=== PATIENT | female | born 1970 | race Caucasian/White ===

== ENCOUNTER → 2020-09-05 | Outpatient (CLI) | payer OTHER ==
[~2020-09-05] MED LIST: CLARITIN10 M3 PO; NORCO5 PO; PEPCID20 MG PO
== END | disposition home or self-care (01) ==
LOC: M.LAB 13:32
PROVIDERS: ATTEND Surgery
DX: Z01.812 Encounter for preprocedural laboratory examination (principal); Z20.822 Contact with and (suspected) exposure to COVID-19; R22.31 Localized swelling, mass and lump, right upper limb; R19.00 Intra-abdominal and pelvic swelling, mass and lump, unspecified site

== ENCOUNTER → 2020-09-06 | Day surgery (SDC) | payer OTHER ==
--- NOTE | ~2020-09-06 | OP ---
[facility] [address] [place] [address] OPERATIVE REPORT Name: NAVDEEP SUAREZ Room: [facility]#: [id number] Admission: 09/06/20 Attend Phys: Anam Tadeo Discharge: Date of : 68 Report #: [id number] THIS REPORT FOR: cc: FAM - No family physician/PCP FAM - No family physician/PCP Anam Tadeo MD ~ DATE OF SURGERY: 09/06/2020 PREOPERATIVE DIAGNOSES: 1. Right shoulder mass, benign, 2 cm. 2. Left abdominal mass, 10 cm. POSTOPERATIVE DIAGNOSES: 1. Right shoulder mass, benign, 2 cm. 2. Left abdominal mass, 10 cm. OPERATIONS: 1. Excision of benign right shoulder mass, 2 cm. 2. Excision of benign left abdominal mass, 10 cm. SURGEON: Anam Tadeo MD ANESTHESIA: General. ESTIMATED BLOOD LOSS: Minimal. SPECIMENS: 1. Right shoulder mass. 2. Left abdominal wall mass. DESCRIPTION OF PROCEDURE: After informed consent was obtained, the patient was brought to the operating room and placed supine. SCDs were placed and working, preoperative antibiotics were administered, general anesthesia was induced. The abdomen and right shoulder were prepped and draped in the usual sterile fashion. A 2 cm incision was made over the right shoulder mass. Cautery dissection was made down through the subcutaneous tissue. Mass was excised. Skin was reapproximated with 4-0 Monocryl in running subcuticular fashion. Attention was then directed to the left abdomen. A 10 cm incision was made. Cautery dissection was made down through the subcutaneous tissue. There was a lipoma. This was carefully dissected around with cautery. It was fully excised. The skin was then reapproximated with 3-0 Vicryl for the deep layer and 4-0 Monocryl in running subcuticular fashion for the skin. Incisions were dressed with Steri-Strips and sterile gauze. Sterile dressings were applied. COMPLICATIONS: [place] [address] OPERATIVE REPORT Name: NAVDEEP SUAREZ Room: [facility].#: [id number] Admission: 09/06/20 Attend Phys: Anam Tadeo Discharge: Date of : 68 Report #: [id number] DISPOSITION: The patient was taken to recovery in satisfactory condition. By: [id number] Tadeo MD /kaden
[2020-09-06 08:34] LABS: HEMOGLOBIN 14.3 gm/dL (12.0-15.0); MCHC 34.9 g/dL (28.0-37.0); MCV 91.8 fL (80.0-100.0); MPV 6.9 fl. (7.2-11.1); RBC 4.46 mil/uL (4.20-5.00); RDW-CV 13.8 % (10.5-14.5); WBC 9.2 thou/uL (4.0-11.0)
[2020-09-06 08:38] LABS: CALCIUM 8.9 mg/dL (8.5-10.1); CREATININE 0.7 mg/dL (0.6-1.3); POTASSIUM 3.8 mmol/L (3.5-5.1)
--- NOTE | 2020-09-06 15:17 | EKG ---
[place] [address] ELECTROCARDIOGRAM REPORT Name: DAREN SUAREZREYNOLD Patel Room: [facility]#: [id number] Admission: 09/06/20 Attend Phys: Anam Chung Discharge: Date of : 68 Date of Service: 09/06/20822 Report #: [id number] THIS REPORT FOR: //name// 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1970 Requested By: Anam Tadeo Order Number: [id number] Jacy MD: Nahun Ruth Measurements Intervals [place] Rate: 90 P: 46 MI: 172 QRS: -22 QRSD: 94 T: 40 QT: 356 QTc: 436 Interpretive Statements Sinus rhythm Borderline left axis deviation Low voltage, precordial leads Consider anterior infarct No previous ECG available for comparison Electronically Signed On 09-06-2020 15:17:14 CDT by Nahun Ruth [email or web address] <ELECTRONICALLY SIGNED> By: Nahun Ruth MD, [facility] 09/06/20 1517 0823 0823 Nahun Ruth MD, [facility] /EPI
--- NOTE | 2020-09-09 15:07 | PATH ---
[address] [address] PATHOLOGY RPT PROCEDURE Name: NAVDEEP SUAREZ Room: [facility]#: [id number] Admission: 09/06/20 Date of : 68 Discharge: Report #: [id number] Path Case #: [id number] [facility] Accession Number: [id number] . 01 Material submitted: . PART A: shoulder - RIGHT SHOULDER MASS. Modifiers: right PART B: abdomen - LEFT ABDOMINAL MASS. Modifiers: left . 01 Clinical history: . EXCISION MASS ABDOMINAL MASS, NECK MASS . 02 Diagnosis: A. Right shoulder mass: - Benign skin with epithelial inclusion cyst. . B. Left abdominal mass: - Lipoma. (CHRISTEL:pit; 09/09/2020) QTP 09/09/2020 1311 Local . 02 Electronically signed: . Noe Akins MD, Pathologist NPI- [id number] . 01 Gross description: . A. The specimen is received in formalin, labeled "Navdeep Suarez, right shoulder mass". Received is an ellipse of pale sexton skin with attached underlying fibroadipose tissue measuring 2.0 x 1.6 x 1.3 cm in greatest dimensions. The surgical margin is inked. Sectioning reveals a unilocular cystic structure measuring 1.0 cm filled with pale-sexton friable material. The specimen is submitted representatively in cassette A1. . B. The specimen is received in formalin, labeled "Navdeep Suarez, left abdominal mass". Received is a segment of bright yellow, shaggy, lobulated tissue measuring 9.3 x 6.0 x 3.8 cm in greatest dimensions. Sectioning reveals right yellow, lobulated cut surfaces with a slight amount of scattered fibrous tissue. No distinct nodules or lesions are noted grossly. The specimen is submitted representatively in cassettes B1 through B3. (CAA; 09/06/2020) QA/[facility] 09/06/2020 [facility]6 Local . 02 Pathologist provided ICD-10: L72.0, D17.1 . 02 CPT . 342178, [id number] [place] [address] PATHOLOGY RPT PROCEDURE Name: NAVDEEP SUAREZ Room: [facility]#: [id number] Admission: 09/06/20 Date of : 68 Discharge: Report #: [id number] Path Case #: [id number] Performed at: 01 [facility] Dede Muniz [address], [place], [place] [id number] MD Artemio Santizo MD Phone: [phone] Performed at: 02 [facility] [address], [place], [place] [id number] MD Noe Akins MD Phone: [phone]
== END | disposition home or self-care (01) ==
LOC: M.SUR 06:45
PROVIDERS: ATTEND Surgery
DX: D17.1 Benign lipomatous neoplasm of skin and subcutaneous tissue of trunk (principal); L72.0 Epidermal cyst; Z98.890 Other specified postprocedural states; Z79.899 Other long term (current) drug therapy